=== PATIENT | female | born 1930 | race Caucasian/White ===

== ENCOUNTER 2017-01-20 14:31 | Outpatient (CLI) | payer MEDICARE, OTHER | END 2017-01-20 14:32 | LOC: POD 14:31 | PROVIDERS: ATTEND Podiatrist | DX: B35.1 Tinea unguium (principal); M67.472 Ganglion, left ankle and foot; M79.674 Pain in right toe(s); M79.675 Pain in left toe(s); M20.41 Other hammer toe(s) (acquired), right foot; M20.42 Other hammer toe(s) (acquired), left foot | CPT/HCPCS: 11721; G0463 ==

== ENCOUNTER 2017-04-18 13:55 | Outpatient (CLI) | payer MEDICARE, OTHER | END 2017-04-18 13:56 | LOC: POD 13:55 | PROVIDERS: ATTEND Podiatrist | DX: B35.1 Tinea unguium (principal); M79.674 Pain in right toe(s); M79.675 Pain in left toe(s) | CPT/HCPCS: 11721; G0463 ==